=== PATIENT | male | born 1955 | race Caucasian/White ===

== ENCOUNTER 2019-10-29 08:08 | Day surgery (SDC) | payer OTHER ==
[2019-10-26 14:29] LABS: Protime INR 1.03
[2019-10-29] MEDS ORDERED: NA CHLORIDE 0.9% 500 ML ONE (08:12)
--- OUTSIDE RECORDS SUMMARY | 2019-10-29 08:51 | XMS REPORT | Continuity of Care Document ---
:1955 Author Organization [facility] t Address [address] [place] [address] Care Team Providers Name Role Phone 2, Lab Attending Clinician Unavailable Doctor Unassigned, Name Attending Clinician Unavailable Sandro Bingham MD Attending Clinician Vincenzo GOODSON Attending Clinician Problems This patient has no known problems. Allergies, Adverse Reactions, Alerts This patient has no known allergies or adverse reactions. Medications This patient has no known medications. Procedures This patient has no known procedures. Encounters Start End Encounter Admission Attending Care Care Encounter Source Date/Time Date/Time Type Type Clinicians Facility Department ID 2019-10-24 2019-10-24 Micro Photographer 2, [facility] [id number] 09:06:16 09:21:16 Visit Renetta [id number] [place] [id number] Professio [phone] [address] 2019-10-24 2019-10-24 Orders Doctor RENETTA [id number] 00:00:00 00:00:00 Only Unassigned, NIELS [id number] [place] [facility] [phone] [id number] 2019-10-19 2019-10-19 Telephone TOM Bingham [id number] 00:00:00 00:00:00 [facility] [id number] Sandro Jackson [id number] Professio [phone] nal [address] One 2019-09-27 2019-09-27 Office Vincenzo [facility] [id number] 08:30:31 08:50:31 Visit Rudolph Jackson [id number] Alanna [id number] Maureen [phone] formerly [facility] 085 Building Results This patient has no known results.
--- OUTSIDE RECORDS SUMMARY | 2019-10-29 08:51 | XMS REPORT | Summary of Care ---
:1955 Author Organization [facility] Address [address] [place] [address] Care Team Providers Name Role Phone Geoff Bingham MD Primary Care Provider Encounter Details Date Type Department Care Team Description 08/24/2019 Hospital Encounter [facility], Dedra [place] [facility] [address] [facility] [address] [place] [address] [place] [address] [place] [address] [phone] Allergies No Known Allergiesdocumented as of this encounter (statuses as of 08/25/2019) Medications Medication Sig Dispensed Refills Start Date End Date Status aspirin 81 mg chewable Take 81 mg by 0 Active tablet mouth daily. VITAMIN E ACETATE Take by mouth. 0 Active (VITAMIN E ORAL) FLAXSEED ORAL Take by mouth. 0 Active FOLIC Take by mouth. 0 Acti ve ACID/MULTIVIT-MIN/LUTEIN (CENTRUM SILVER ORAL) valsartan 160 mg Take 1 tablet 30 tablet 5 05/10/2018 Active tabletIndications: by mouth daily. Essential hypertension indomethacin 25 mg Take 1 capsule 30 capsule 5 08/25/2018 Active capsuleIndications: Acute by mouth 3 non intractable (three) times tension-type headache daily with meals. 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 Exposure to the flu ATORVASTATIN 10 mg TAKE ONE TABLET 30 tablet 2 04/06/2019 Active tabletIndications: BY MOUTH EVERY Hyperlipidemia, EVENING unspecified hyperlipidemia type albuterol 90 Inhale 2 Puffs 8.5 g 0 08/24/2019 A ctive mcg/actuation every 6 (six) inhalerIndications: SOB hours as needed (shortness of breath) for Wheezing or Shortness of Breath. documented as of this encounter (statuses as of 08/25/2019) Active Problems Problem Noted Date Essential hypertension 06/26/2015 Gout 06/26/2015 Male erectile disorder 06/26/2015 Hypercholesterolemia 06/26/2015 documented as of this encounter (statuses as of 08/25/2019) Social History Tobacco Use Types Packs/Day Years Used Date Never Smoker Smokeless Tobacco: Never Used Alcohol Use Drinks/Week oz/Week Comments Yes 21 Shots of liquor 21.0 Sex Assigned at Date Recorded Not on file Job Start Date Occupation Industry Not on file Not on file Not on file Travel History Travel Start Travel End No recent travel history available. COVID-19 Exposure Response Date Recorded In the last month, have you been in contact with No / Unsure 08/24/2019 8:59 AM CDT someone who was confirmed or suspected to have Coronavirus / COVID-19? documented as of this encounter Last Filed Vital Signs Not on filedocumented in this encounter Plan of Treatment Health Maintenance Due Date Last Done Comments HEPATITIS C (HCV) SCREEN 1955 DTaP,Tdap,and Td Vaccines (1 - Tdap) 1966 Zoster Recombinant Vaccine (SHINGRIX) 11/13/2003 (1 of 2) Medicare Wellness Visit 2018 PNEUMOCOCCAL VACCINES 65+ (1 of 2 - 2018 PCV13) INFLUENZA VACCINE (Season Ended) 2019 Depression Screening 12/08/2019 12/07/2018 COLONOSCOPY 06/21/2023 06/20/2013 (Previously completed) documented as of this encounter Procedures Procedure Name Priority Date/Time Associated Diagnosis Comme nts XR CHEST 2 VW COVID STAT 08/24/2019 9:40 AM SOB (shortness of Results for this CDT breath) procedure are i n the results section. documented in this encounter Results XR CHEST 2 VW COVID (08/24/2019 9:40 AM CDT) Specimen Narrative Performed At EXAM: XR CHEST 2 VW COVID PACS/VR/DOSE HISTORY: shortness of breath COMPARISON: None. FINDINGS: The heart and great vessels are normal and the lungs a re well expanded and clear. Procedure Note [facility], Radiant Results Inft User - 2019 9:45 AM CDT EXAM: XR CHEST 2 VW COVID HISTORY: shortness of breath COMPARISON: None. FINDINGS: The heart and great vessels are normal a nd the lungs are well expanded and clear. Performing Organization Address City/State[facility] Phone Number PACS/VR/DOSE documented in this encounter Visit Diagnoses Diagnosis SOB (shortness of breath) Shortness of breath documented in this encounter Insurance Payer Benefit Plan / Subscriber ID Effective Phone Address T ype Group Dates MEDICARE MEDICARE PART xxxxxxxxxxx 2018-Prese [phone] Medicare A & B nt [id number] [place] [id number] [facility] [id number] 2019-Prese I ndemnity [employer]НА [employer] INSURANCE nt documented as of this encounter
--- OUTSIDE RECORDS SUMMARY | 2019-10-29 08:51 | XMS REPORT | Summary of Care ---
:1955 Author Organization [facility] Address [address] [place] [address] Care Team Providers Name Role Phone Geoff Bingham MD Primary Care Provider Reason for Visit Reason Comments New Patient Cough Encounter Details Date Type Department Care Team Description 09/27/2019 Office Visit [facility] ADC Rudolph Loya DO Cough (Primary Dx) Pulmonary Clinic [address] [place] [phone] Allergies No Known Allergiesdocumented as of this encounter (statuses as of 09/27/2019) Medications Medication Sig Dispensed Refills Start Date [...] by mouth daily. Exposure to the flu albuterol 90 Inhale 2 Puffs 8.5 g 0 08/24/2019 A ctive mcg/actuation every 6 (six) inhalerIndications: SOB hours as needed (shortness of breath) for Wheezing or Shortness of Breath. ATORVASTATIN 10 mg TAKE ONE TABLET 30 tablet 1 08/27/2019 Active tabletIndications: BY MOUTH EVERY Hyperlipidemia, EVENING unspecified hyperlipidemia type documented as of this encounter (statuses as of 09/27/2019) Active Problems Problem Noted Date Essential hypertension 06/26/2015 Gout 06/26/2015 Male erectile disorder 06/26/2015 Hypercholesterolemia 06/26/2015 documented as of this encounter (statuses as of 09/27/2019) Social History Tobacco Use Types Packs/Day Years Used Date Never Smoker Smokeless Tobacco: Never Used Alcohol Use Drinks/Week oz/Week Comments Yes 21 Shots of liquor 21.0 Sex Assigned at Date Recorded Not on file Job Start Date Occupation Industry Not on file Not on file Not on file Travel History Travel Start Travel End No recent travel history available. documented as of this encounter Last Filed Vital Signs Vital Sign Reading Time Taken Comments Blood Pressure 125/76 09/27/2019 8:55 AM CDT Pulse 97 09/27/2019 8:55 AM CDT Temperature - - Respiratory Rate 19 09/27/2019 8:55 AM CDT Oxygen Saturation 99% 09/27/2019 8:55 AM CDT Inhaled Oxygen Concentration - - Weight 97.1 kg (214 lb) 09/27/2019 8:55 AM CDT Height 180.3 cm (5' 11") 09/27/2019 8:55 AM CDT Body Mass Index 29.85 09/27/2019 8:55 AM CDT documented in this encounter Patient Instructions Patient Rudolph Piña DO - 09/27/2019 8:40 AM CDT Patient Education Tips to Control Acid Reflux To control acid reflux, youll need to make some basic diet and lifestyle changes. The simple steps outlined below may be all youll need to ease discomfort. Watch what you eat Don't have fatty foods or spicy foods. Eat fewer acidic foods, such as citrus and tomato-based foods. These can increase symptoms. Limit drinking alcohol, caffeine, and fizzy beverages. All increase acid reflux. Try limiting chocolate, peppermint, and spearmint.These can make acid reflux worse in some people. Watch when you eat Don't lie down [id number] after eating. Don't snack before going to bed. Raise your head Raising your head and upper body by 4 to 6 incheshelps limit reflux when youre lying down. Put blocks under the head of your bed frame or a wedge under your mattress to raise it. Other changes Lose weight, if you need to Dont exercise near bedtime Don't wear tight-fitting clothes Limit aspirin and ibuprofen Stop smoking [employer] last reviewed this educational content on 08/05/201819995094-1631 [employer]. [address] [place] [address]. All rights reserved. This information is not intended as a substitute for professional medical care. Always follow your healthcare professional's instructions. documented in this encounter Progress Notes Rudolph Loya DO - 09/27/2019 8:40 AM CDT [facility] Chief Complaint: Cough History of Present Illness: Conrad Simons is a 63 year old male with cough for the past month and ahalf, not productive of phlegm except first thing in the morning. Mostly when laying down and when he wakes up in the morning. Worse with laying down on the right side. No runny nose, nasal congestion,sore throat, post nasal drip. Cough does wake up from sleep at times. Past Medical History: has a past medical history of Gout, Hyperlipidemia, and Hypertension. He alsohas no past medical history of Diabetes mellitus, Myocardial infarction, or Stroke. Past Surgical History: has no past surgical history on file. Family History: family history includes Cancer in his father; No Significant Medical Problems in hismother. Social History: reports that he has never smoked. He has never used smokeless tobacco. He reports that he drinks about 21.0 standard drinks of alcohol per week. He reports that he does not use drugs. Review of Systems: Review of Systems Constitutional: Negative. HENT: Negative. Eyes: Negative. Respiratory: Positive for cough. Cardiovascular: Negative. Gastrointestinal: Negative. Genitourinary: Negative. Musculoskeletal: Negative. Skin: Negative. Neurological: Negative. Psychiatric/Behavioral: Negative. Endocrine: Endocrine negative Objective: BP 125/76 (BP Location: Left arm, Patient Position: Sitting, BP CUFF SIZE: Adult Large) | Pulse 97| Resp 19 | Ht 5' 11" (1.803 m) | Wt 214 lb (97.1 kg) | SpO2 99% | BMI 29.85 kg/m Physical Exam Constitutional: He is oriented to person, place, and time. He appears well- developed and well-nourished. HENT: Head: Normocephalic and atraumatic. Eyes: Conjunctivae and EOM are normal. Neck: Normal range of motion. Neck supple. Cardiovascular: Normal rate and regular rhythm. Pulmonary/Chest: Effort normal and breath sounds normal. No respiratory distress. Abdominal: Soft. He exhibits no distension. Musculoskeletal: Normal range of motion. Neurological: He is alert and oriented to person, place, and time. Skin: Skin is warm and dry. Psychiatric: He has a normal mood and affect. His behavior is normal. Judgment and thought content normal. Labs/Studies: CXR no acute abnormalities noted, reviewed images and report Assessment: ICD-10-CM ICD-9-CM 1. Cough R05 786.2 May be related to allergies/dust May be related to reflux Plan: 1. Continue with current management including air purifier that seemed to have helped the cough 2. Reflux precautions 3. Follow up 8 weeks documented in this encounter Plan of Treatment Health Maintenance Due Date Last Done Comments HEPATITIS C (HCV) SCREEN 1955 DTaP,Tdap,and Td Vaccines (1 - Tdap) 1964 Zoster Recombinant Vaccine (SHINGRIX) 11/13/2003 (1 of 2) Medicare Wellness Visit 2018 PNEUMOCOCCAL VACCINES 65+ (1 of 2 - 2018 PCV13) INFLUENZA VACCINE (#1) 2019 Depression Screening 09/26/2020 09/27/2019 COLONOSCOPY 06/21/2023 06/20/2013 (Previously completed) documented as of this encounter Results Not on filedocumented in this encounter Visit Diagnoses Diagnosis Cough - Primary documented in this encounter Insurance Payer Benefit Plan / Subscriber ID Effective Phone Address T ype Group Dates MEDICARE MEDICARE PART xxxxxxxxxxx 2018-Prese [phone] Medicare A & B nt [id number] [place] [id number] [facility] [id number] 2019-Prese I ndemnity [employer] INSURANCE nt documented as of this encounter
--- OUTSIDE RECORDS SUMMARY | 2019-10-29 08:51 | XMS REPORT | Summary of Care ---
:1955 Author Organization [facility] Address [address] [place] [address] Care Team Providers Name Role Phone Geoff Bingham MD Primary Care Provider [phone] Reason for Visit Reason Comments Refill Request Encounter Details Date Type Department Care Team Description 08/27/2019 Refill [facility] Geoff Dumont MD Refill Request - [address] [place] [address] [place] [address] [phone] Allergies No Known Allergiesdocumented as of this encounter (statuses as of 08/27/2019) Medications Medication Sig Dispensed Refills Start End Date Status Date aspirin 81 mg chewable Take 81 mg by 0 Active tablet mouth daily. VITAMIN E ACETATE Take by 0 Ac tive (VITAMIN E ORAL) mouth. FLAXSEED ORAL Take by 0 Active mouth. FOLIC Take by 0 Active ACID/MULTIVIT-MIN/LUTEI mouth. N (CENTRUM SILVER ORAL) valsartan 160 mg Take 1 tablet 30 tablet 5 Active tabletIndications: by mouth 9 Essential hypertension daily. indomethacin 25 mg Take 1 30 capsule 5 Active capsuleIndications: capsule by 9 Acute non intractable mouth 3 tension-type headache (three) times daily with meals. ALLOPURINOL 300 mg TAKE ONE 90 tablet 3 A ctive tabletIndications: TABLET BY 9 Chronic gout involving MOUTH DAILY toe of right foot without tophus, unspecified cause LOSARTAN 100 mg TAKE ONE 90 tablet 3 Acti ve tabletIndications: TABLET BY 9 Essential hypertension MOUTH DAILY MUST BE SEEN FOR REFILLS HYDROCHLOROTHIAZIDE TAKE ONE 90 capsule 3 Active 12.5 mg CAPSULE BY 9 capsuleIndications: MOUTH DAILY Essential hypertension oseltamivir (TAMIFLU) Take 1 10 capsule 0 Active 75 mg capsule by 0 capsuleIndications: mouth daily. Exposure to the flu albuterol 90 Inhale 2 8.5 g 0 Active mcg/actuation Puffs every 6 0 inhalerIndications: SOB (six) hours (shortness of breath) as needed for Wheezing or Shortness of Breath. ATORVASTATIN 10 mg TAKE ONE 30 tablet 1 A ctive tabletIndications: TABLET BY 0 Hyperlipidemia, MOUTH EVERY unspecified EVENING hyperlipidemia type ATORVASTATIN 10 mg TAKE ONE 30 tablet 2 08/27/19 D iscontinued tabletIndications: TABLET BY 0 20 Hyperlipidemia, MOUTH EVERY unspecified EVENING hyperlipidemia type documented as of this encounter (statuses as of 08/27/2019) Active Problems Problem Noted Date Essential hypertension 06/26/2015 Gout 06/26/2015 Male erectile disorder 06/26/2015 Hypercholesterolemia 06/26/2015 documented as of this encounter (statuses as of 08/27/2019) Social History Tobacco Use Types Packs/Day Years [...] filedocumented in this encounter Visit Diagnoses Diagnosis Hyperlipidemia, unspecified hyperlipidem ia type documented in this encounter Insurance Payer Benefit Plan / Subscriber ID Effective Phone Address T ype Group Dates MEDICARE MEDICARE PART xxxxxxxxxxx 2018-Prese [phone] Medicare A & B nt [id number] [place] [id number] [facility] [id number] 2019-Prese I ndemnity [employer] С[employer]АНА LIFE INSURANCE nt documented as of this encounter
--- OUTSIDE RECORDS SUMMARY | 2019-10-29 08:51 | XMS REPORT | Summary of Care ---
:1955 Author Organization [facility] Address [address] [place] [address] Care Team Providers Name Role Phone Geoff Bingham MD Primary Care Provider [phone] Reason for Visit Reason Comments New Patient Cough Encounter Details Date Type Department Care Team Description 09/27/2019 Office Visit [facility] ADC Rudolph Loya DO Cough (Primary Dx) Pulmonary Clinic [address], [address] [place] [phone] Allergies No Known Allergiesdocumented as of this [...] Watch when you eat Don't lie down [id number] after eating. Don't snack before going to [...] clothes Limit aspirin and ibuprofen Stop smoking [employer] last reviewed this educational content on 08/05/201819997689-6217 [employer]. [address] [place] [address]. All rights reserved. This information is not intended as a substitute for professional medical care. Always follow your healthcare professional's instructions. documented in this encounter Progress Notes Rudolph Loya DO - 09/27/2019 8:40 AM CDT [facility] Chief Complaint: Cough [...] BOX Medicare A & B nt [id number] [place] [id number] [facility] [id number] 2019-Prese I ndemnity [employer] nt documented as of this encounter
--- OUTSIDE RECORDS SUMMARY | 2019-10-29 08:51 | XMS REPORT | Summary of Care ---
:1955 Author Organization [facility] - [facility] Address [address] [place] [address] Care Team Providers Name Role Phone Geoff Bingham MD Primary Care Provider [phone] Reason for Visit Reason Comments Shortness of Breath x 2-3 weeks Encounter Details Date Type Department Care Team Description 08/24/2019 Urgent Care [facility] Family Felipa Wilcox, DIESEL SCOOP OPERATOR [facility] [address] [place] [address] Sore throat (Primary Dx); Medicine - [place] [facility] Cough; [address] [place] [address] SOB (short ness of breath); Drive Exposure to Covid-19 [place] [address] Allergies No Known Allergiesdocumented as of this encounter (statuses as of 08/24/2019) Medications Medication Sig Dispensed Refills Start Date [...] as of this encounter (statuses as of 08/24/2019) Active Problems Problem Noted Date Essential hypertension 06/26/2015 Gout 06/26/2015 Male erectile disorder 06/26/2015 Hypercholesterolemia 06/26/2015 documented as of this encounter (statuses as of 08/24/2019) Social History Tobacco Use Types Packs/Day Years [...] Reading Time Taken Comments Blood Pressure 125/76 08/24/2019 8:59 AM CDT Pulse 89 08/24/2019 8:59 AM CDT Temperature 36.7 C (98 F) 08/24/2019 8:59 AM CDT Respiratory Rate 20 08/24/2019 8:59 AM CDT Oxygen Saturation 99% 08/24/2019 8:59 AM CDT Inhaled Oxygen Concentration - - Weight 95.3 kg (210 lb) 08/24/2019 8:59 AM CDT Height 180.3 cm (5' 11") 08/24/2019 8:59 AM CDT Body Mass Index 29.29 08/24/2019 8:59 AM CDT documented in this encounter Patient Instructions Patient InstructionsMiguel Ortiz FNP - 08/24/2019 9:00 AM CDT Patient Education Understanding Coronavirus Disease 2019 (COVID-19) Coronavirus disease 2019 (COVID-19) is a respiratory illness. It's caused by a new (novel) coronavirus called SARS-CoV-2. There are many types of coronavirus. Coronaviruses are a very common cause of bronchitis. They may sometimes cause lung infection (pneumonia). Symptoms can range from mild to severe respiratory illness. These viruses are also found in some animals. COVID-19 was first found in people in [facility], in late 2018.COVID-19 is a rapidly-emerging infectious disease. This means thatscientists are actively researching it.There are information updates regularly. Public health officials are working to find the source. How the virus spreads is not yet fully understood, but it seems to spread and infect people fairly easily. Some people who have been infected in an area may be unsure how or where they became infected. The virus may be spread through droplets of fluid that a person coughs or sneezes into the air. It may be spread if you touch a surface with virus on it, such as a handle or object, and then touch your eyes, nose, or mouth. For the latest information, visit the CDC website at www.cdc.gov/coronavirus/2019-ncov. Or call 401-BOB-VTZG (061-597-8815). What are the symptoms of COVID-19? Some people have no symptoms or mild symptoms. Symptoms may appear 2 to 14 days after contact with the virus. Symptoms can include: Fever Coughing Trouble breathing What are possible complications from COVID-19? In many cases, this virus can cause infection (pneumonia) in both lungs. In some cases, this can cause . Certain people are at higher risk for complications. This includes older adults and people with serious chronic health conditions such as heart or lung disease or diabetes. How is COVID-19 diagnosed? Your healthcare provider will ask about your symptoms. He or she will also ask about your recent travel and contact with sick people. If your healthcare provider thinks you may have COVID-19, he or shewill work closely with your local health department on testing. Follow all instructions from your healthcare provider. COVID-19 is diagnosed by: Nose and throat swab. A cotton-tipped swab is wiped inside your nose or throat. This is done to check for viruses in your nasal mucus. Sputum culture. A small sample of mucus coughed from your lungs (sputum) is collected if you havea cough. It's checked for the virus. How is COVID-19 treated? There is currently no medicine to treat the virus. Treatment is done to help your body while it fights the virus. This is known as supportive care. Supportive care may include: Getting rest. This helps your body fight the illness. Staying hydrated. Drink 6 to 8 glasses of liquids every day. Good choices are water, sport drinks, soft drinks without caffeine, juices, tea, and soup. Taking pain medicine. These may include acetaminophen and ibuprofen. They are used to help ease pain and reduce fever. Follow your healthcare provider's instructions. For severe illness, you may need to stay in the hospital. Care during severe illness may include: IV (intravenous) fluids. These are given through a vein to help keep your body hydrated. Oxygen. Supplemental oxygen or ventilation with a breathing machine (ventilator) may be given. This is done so you get enough oxygen in your body. Are you at risk for COVID-19? You are at risk for infection if youve been to a place where people have been sick with this virus or if there are people with COVID-19 in your area. You are at risk if you: Recently traveled to an area with a COVID-19 outbreak Had contact with a sick person who recently traveled to an area with a COVID- 19 outbreak Had contact with a person who was diagnosed with or who may have COVID-19 How can COVID-19 be prevented? There is no vaccine yet. The best prevention is to not have contact with the virus. The CDC advises that people should not travel to areas where there are COVID-19 outbreaks right now for any reason that is not urgent. For the most current CDC travel advisories, visit the CDC website at www.cdc.gov/cor onavirus/2018-ncov/travelers. To help prevent spreading the infection, wash your hands often, or use an alcohol-based hand weight reduction specialist. The CDC advises that you should not wear a facemask if you are not sick. Prepare and protect yourself from COVID-19: Wash your hands often with soap and clean, running water for at least 20 seconds. If you don't have access to soap and water, use an alcohol-based hand weight reduction specialist often. Make sure it has at least 60% alcohol. Don't touch your eyes, nose, or mouth unless you have clean hands. As much as possible, don't touch "high-touch" public surfaces such as doorknobs. Don't shake hands. Clean home and work surfaces often with disinfectant. Cough or sneeze into a tissue, then throw the tissue into the trash. If you don't have tissues, cough or sneeze into the bend of your elbow. Stay informed about COVID-19 in your area. Follow local instructions about being in public. Be aware of events in your community that may be postponed or canceled such as school and sporting events.You may be advised not to attend public gatherings. You will be advised to stay about 6 feet from others as much as possible. This is called "social distancing." The CDC advises wearing a cloth face mask in public. During a public health emergency, medical face masks may be reserved for healthcare workers. You may need to make a cloth face mask of your own. You can do this using a bandana, T- shirt, or other cloth. The CDC hasinstructions on how to make a mask. Check your home supplies. Consider keeping a 2-week supply of medicines, food, and other needed household items. Make a plan for childcare, work, and ways to stay in touch with others. Know who will help you ifyou get sick. Don't be around people who are sick. There is no evidence right now that animals spread SARS-CoV-2. But it's always a good idea to wash your hands after touching any animals. Don't touch animals that may be sick. Dont share eating or drinking utensils with sick people. Dont kiss someone who is sick. If you were in an area with COVID-19 in the last 14 days: Call your healthcare provider and follow all instructions. Your activities and where you go may be restricted for up to 2 weeks. You may be directed to stay home, or "self-quarantine." Take your temperature every morning and evening for at least 14 days. This is to check for fever.Keep a record of the readings. Watch for symptoms of the virus. Call your provider if you have symptoms. Call your provider first before going to any clinic or hospital. Stay home if you are sick for any reason. If you are sick with COVID-19 symptoms: Stay home. Call your healthcare provider and tell them you have symptoms of COVID-19. Do this before going to any hospital or clinic. Follow your provider's instructions. You may be advised to isolate yourself at home. This is called self-isolation . Dont panic. Keep in mind that other illnesses can cause similar symptoms. Stay away from work, school, and public places. Limit physical contact with family members. Limitvisitors. Don't kiss anyone or share eating or drinking utensils. Clean surfaces you touch with disinfectant. This is to help prevent the virus from spreading. Cough or sneeze into a tissue, then throw away the tissue in the trash. If you don't have tissues, cough or sneeze into the bend of your elbow. Wear a facemask only if you have symptoms If you need to go in to a hospital or clinic, expect that the healthcare staff will wear protective equipment such as masks, gowns, gloves, and eye protection. You may be put in a separate room. This is to prevent the possible virus from spreading. Tell the healthcare staff about recent travel. This includes local travel on public transport. Staff may need to find other people you have been in contact with. Follow all instructions the healthcare staff give you. If you have been diagnosed with COVID-19 Stay home. Dont leave your home unless you need to get medical care. Don't go to work, school,or public areas. Don't use public transportation or taxis. Follow all instructions from your healthcare provider. Call your healthcare providers office before going. They can prepare and give you instructions. This will help prevent the virus from spreading. If you need to go to a hospital or clinic, expect that the healthcare staff will wear protective equipment such as masks, gowns, gloves, and eye protection. You may be put in a separate room. This is to prevent the possible virus from spreading. Wear a face mask. This is to protect other people from your germs. If you are not able to wear a mask, your caregivers should. Stay away from other people in your home. Limit contact with pets and animals. Although there are no reports of pets getting sick with COVID-19, consider limiting contact with pets until more is known. Dont share household items or food. Cover your face with a tissue when you cough or sneeze. Throw the tissue away. Then wash your hands. Wash your hands often. If you are caring for a sick person: Follow all instructions from healthcare staff. Wash your hands often. Wear protective clothing as advised. Make sure the sick person wears a mask. If they can't wear a mask, don't stay in the same room with the person. If you must be in the same room, wear a facemask. Keep track of the sick persons symptoms. Clean surfaces, fabrics, and laundry thoroughly. Keep other people and pets away from the sick person. When to call your healthcare provider Call your healthcare provider right away: If youve recently traveled or have been in an area with COVID-19 and have symptoms If you have been diagnosed with COVID-19 and your symptoms are worse Date last modified: 06/11/2019 [employer] last reviewed this educational content on 03/07/201919995454-5500 [employer]. [address] [place] [address]. All rights reserved. This information is not intended as a substitute for professional medical care. Always follow your healthcare professional's instructions. documented in this encounter Progress Notes Anju Madrid MA - 08/24/2019 9:00 AM CDT Conrad Simons is a 63 year old male Chief Complaint Patient presents with Shortness of Breath x 2-3 weeks Vitals: 08/24/19 0859 BP: 125/76 Pulse: 89 Resp: 20 Temp: 36.7 C (98 F) SpO2: 99% Weight: 210 lb (95.3 kg) Height: 5' 11" (1.803 m) [facility] [address] [facility], [place] - [address] All Vitals taken, allergies and all medications reviewed, fall risk assessed. Pain level 0. Anju Madrid MA Patient educated on plan of care for visit, swabbing technique, risks and benefits of test and length of time to receive results. Verbal consent obtained to perform test. CDC Fact Sheet for Patients nCoV Diagnostic Panel dated 05/20/2019 provided. covid test run Miguel Sahu FNP - 08/24/2019 9:00 AM CDT COVID-19 Screening Clinic: [facility] Patient Name: Conrad Simons Date of : 1955 63 year old Primary Care Physician: Geoff Bingham During this visit: Full PPE was used, mask, face shield, gown, and gloves Chief Complaint Chief Complaint Patient presents with Shortness of Breath x 2-3 weeks HPI 63 yr old male patient here for c/o 2-3 week history of intermittent shortness of breath. Patient states sob isnt excessive and doesn't occur every day. Patient denies any other symptoms at this time. Patient denies any chronic lung issue or smoking history. Patient denies any recent travel or contactwoth known positive covid patient Past Medical History / Immunizations Past Medical History: Diagnosis Date Gout Hyperlipidemia Hypertension Past Surgical History No past surgical history on file. Allergies No Known Allergies Review of Systems Review of Systems Constitutional: Negative for chills, fatigue and fever. HENT: Negative for congestion, rhinorrhea, sinus pressure, sneezing and sore throat. Respiratory: Positive for shortness of breath. Negative for cough and chest tightness. Gastrointestinal: Negative for nausea and vomiting. Musculoskeletal: Negative for myalgias. Skin: Negative for rash. Neurological: Negative for dizziness, syncope, weakness, light-headedness and headaches. All other systems reviewed and are negative. Sick Contacts: contacts with similar symptoms - no Physical Exam BP 125/76 | Pulse 89 | Temp 36.7 C (98 F) | Resp 20 | Ht 5' 11" (1.803 m) | Wt 210 lb (95.3kg) | SpO2 99% | BMI 29.29 kg/m Physical Exam Constitutional: He is oriented to person, place, and time. Vital signs are normal. He appears well-developed and well-nourished. He is cooperative. Non- toxic appearance. He does not have a sickly appearance. He does not appear ill. No distress. HENT: Right Ear: Hearing, tympanic membrane, external ear and ear canal normal. Left Ear: Hearing, tympanic membrane, external ear and ear canal normal. Nose: Nose normal. Right sinus exhibits no maxillary sinus tenderness and no frontal sinus tenderness. Left sinus exhibits no maxillary sinus tenderness and no frontal sinus tenderness. Mouth/Throat: Uvula is midline, oropharynx is clear and moist and mucous membranes are normal. No oropharyngeal exudate. Eyes: Pupils are equal, round, and reactive to light. Conjunctivae and EOM are normal. Neck: Normal range of motion. Neck supple. Cardiovascular: Normal rate. Pulmonary/Chest: Effort normal and breath sounds normal. No accessory muscle usage. No apnea, no tachypnea and no bradypnea. No respiratory distress. He has no decreased breath sounds. He has no wheezes. He has no rhonchi. He has no rales. He exhibits no tenderness. Musculoskeletal: Normal range of motion. Neurological: He is alert and oriented to person, place, and time. Skin: Skin is warm and dry. Capillary refill takes less than 2 seconds. No rash noted. He is not diaphoretic. Psychiatric: He has a normal mood and affect. His behavior is normal. Judgment and thought content normal. Nursing note and vitals reviewed. No final results containing an impression from the past 2 days were found. Labs No results found for this or any previous visit (from the past 24 hour(s)). No results found. Orders and Treatments Orders Placed This Encounter Procedures XR CHEST 2 VW COVID-19 (PCR MOLECULAR TESTING) Outpatient Encounter Medications as of 08/24/2019 Medication Sig albuterol 90 mcg/actuation inhaler Inhale 2 Puffs every 6 (six) hours as needed for Wheezing or Shortness of Breath. ATORVASTATIN 10 mg tablet TAKE ONE TABLET BY MOUTH EVERY EVENING oseltamivir (TAMIFLU) 75 mg capsule Take 1 capsule by mouth daily. HYDROCHLOROTHIAZIDE 12.5 mg capsule TAKE ONE CAPSULE BY MOUTH DAILY LOSARTAN 100 mg tablet TAKE ONE TABLET BY MOUTH DAILY MUST BE SEEN FOR REFILLS ALLOPURINOL 300 mg tablet TAKE ONE TABLET BY MOUTH DAILY indomethacin 25 mg capsule Take 1 capsule by mouth 3 (three) times daily with meals. valsartan 160 mg tablet Take 1 tablet by mouth daily. aspirin 81 mg chewable tablet Take 81 mg by mouth daily. FLAXSEED ORAL Take by mouth. FOLIC ACID/MULTIVIT-MIN/LUTEIN (CENTRUM SILVER ORAL) Take by mouth. VITAMIN E ACETATE (VITAMIN E ORAL) Take by mouth. No results found for this visit on 08/24/19. Diagnosis Patient well appearing, NAD noted on exam Patient speaking in complete sentences on exam. Physical exam otherwise unremarkable Vital signs TREVON Martines was seen today for shortness of breath. Diagnoses and all orders for this visit: Sore throat - COVID-19 (PCR MOLECULAR TESTING) Cough - COVID-19 (PCR MOLECULAR TESTING) SOB (shortness of breath) - COVID-19 (PCR MOLECULAR TESTING) - XR CHEST 2 VW; Future - albuterol 90 mcg/actuation inhaler; Inhale 2 Puffs every 6 (six) hours as needed for Wheezing or Shortness of Breath. Exposure to Covid-19 Virus Disposition & Follow Up - Discussed likely viral diagnosis and treatment plan with pt. - pt advised on frequent effective handwashing - pt advised to increase fluid intake - advised to have the pt take OTC to treat symptoms. - Pt advised to administer Tylenol as per label recommendation as needed for pain or fever - AVS and Written/handout materials appropriate to problem and teaching provided. - advised to go to the nearest Emergency Department sooner for any new, worsening, persistent, or concerning symptoms - Patient verbalized understanding of all instructions EDUCATION: Handouts given: Patient educated on plan of care for visit, swabbing technique,risks and benefits of test and lengthof time to receive results. Verbal consent obtained to perform test. CDC Fact Sheet for patients nCoV Diagnostic Panel dated 05/20/2019 provided. "What to do if you are sick with COVID-19" CDC information guide reviewed with the patient and handout given to patient Education given to self quarantine until results are back. Will notify patient with results. Patient states understanding and all questions answered. Plan of care, goals and medications discussed with patient. Patient voices understanding. Barriers to care: none Ability to manage care: good This visit did not involve counseling and coordination that comprised more than 50% of the visit time. DELMIS Tobias 08/24/2019 8:55 AM documented in this encounter Plan of Treatment Name Type Priority Associated Diagnoses Date/Ti me XR CHEST 2 VW IMAGING STAT SOB (shortness of breath) 0 08/24/2019 9:28 AM CDT Name Type Priority Associated Diagnoses Order S chedule COVID-19 (PCR MOLECULAR LAB Routine Sore thr oat Ordered: 08/24/2019 TESTING) Cough SOB (shortness of breath) XR CHEST 2 VW IMAGING STAT SOB (shortness of Expected: 08/24/2019, breath) Expires: 2020 Health Maintenance Due Date Last Done Comments [...] filedocumented in this encounter Visit Diagnoses Diagnosis Sore throat - Primary Acute pharyngitis Cough SOB (shortness of breath) Shortness of breath Exposure to Covid-19 Virus documented in this encounter Insurance Payer Benefit Plan / Subscriber ID Effective Phone Address T ype Group Dates MEDICARE MEDICARE PART xxxxxxxxxxx 2018-Prese [phone] A & B nt [id number] [place] [id number] [facility] [id number] 2019-Prese I ndemnity [employer] nt documented as of this encounter
--- OUTSIDE RECORDS SUMMARY | 2019-10-29 08:52 | XMS REPORT | Summary of Care ---
:1955 Author Organization [facility] Address [address] [place] [address] Care Team Providers Name Role Phone Geoff Bingham MD Primary Care Provider [phone] Reason for Visit Reason Comments Orders Encounter Details Date Type Department Care Team Description 10/19/2019 Telephone [facility] Family Medicine Geoff Dumont MD Orders - [address] [place] [address] [place] [address] [phone] Allergies No Known Allergiesdocumented as of this encounter (statuses as of 10/22/2019) Medications Medication Sig Dispensed Refills Start Date [...] as of this encounter (statuses as of 10/22/2019) Active Problems Problem Noted Date Essential hypertension 06/26/2015 Gout 06/26/2015 Male erectile disorder 06/26/2015 Hypercholesterolemia 06/26/2015 documented as of this encounter (statuses as of 10/22/2019) Social History Tobacco Use Types Packs/Day Years Used Date Never Smoker Smokeless Tobacco: Never Used Alcohol Use Drinks/Week oz/Week Comments Yes 21 Shots of liquor 21.0 Sex Assigned at Date Recorded Not on file documented as of this encounter Last Filed Vital Signs Not on filedocumented in this encounter Miscellaneous Notes Telephone Encounter - Aleisha Mccauley - 10/19/2019 12:54 PM CDTWOP is calling and is requesting to know if can order lab work for the patient, patient saw a adaptive physical education teacher and requested for the patients PCP to order lab work due to an abnormal EKG , patient is hoping to get Blood work done before his stress test on 10/24, please call patient back in regards to this encounter. documented in this encounter Plan of Treatment Date Type Specialty Care Team Description 11/29/2019 Office Visit Pulmonary Disease Rudolph Loya DO [address] [place] [address] Name Type Priority Associated Diagnoses Order S chedule CBC WITH DIFF LAB Routine Essential hypertension Expe cted: 10/23/2019 (Approximate), Expires: 11/05/2019 COMP. METABOLIC PANEL LAB Routine Essential hypertens ion Expected: 10/23/2019 (95651) (Approximate), Expires: 11/05/2019 LIPID PANEL ([id number])(TOTAL LAB Routine Hypercholestero lemia Expected: 10/23/2019 CHOLESTEROL, (Approximate), Expires: TRIGLYCERIDES, HDL) 11/05/19 20 Health Maintenance Due Date Last Done Comments HEPATITIS C (HCV) SCREEN 1955 DTaP,Tdap,and Td Vaccines (1 - Tdap) 1972 COLON CANCER SCREENING ANNUAL 11/13/2003 FIT/FOBT COLON CANCER SCREENING FIT DNA EVERY 11/13/2003 3 YEARS COLON CANCER SCREENING SIGMOIDOSCOPY 11/13/2003 EVERY 5 YEARS Zoster Recombinant Vaccine (SHINGRIX) 11/13/2003 (1 of 2) Medicare Wellness Visit 2018 PNEUMOCOCCAL VACCINES 65+ (1 of 1 - 2018 PPSV23) INFLUENZA VACCINE (#1) 2019 Depression Screening 09/26/2020 09/27/2019 COLONOSCOPY 06/21/2023 06/20/2013 (Previously completed) Colorectal Cancer Screening 06/21/2023 documented as of this encounter Results Not on filedocumented in this encounter Visit Diagnoses Diagnosis Essential hypertension - Primary Unspecified essential hypertension Hypercholesterolemia Pure hypercholesterolemia documented in this encounter Insurance Payer Benefit Plan / Subscriber ID Effective Phone Address T ype Group Dates MEDICARE MEDICARE PART [id number] 2018-Prese [phone] A & B nt [id number] [place] [phone] [facility] [id number] 2019-Prese I ndemnity [employer] nt documented as of this encounter
--- OUTSIDE RECORDS SUMMARY | 2019-10-29 08:53 | XMS REPORT | Summary of Care ---
:1955 Author Organization [facility] - Health Address [address] [place] [address] Care Team Providers Name Role Phone Geoff Bingham MD Primary Care Provider [phone] Encounter Details Date Type Department Care Team Description 10/24/2019 Orders Only [facility] Doctor Unassigned, No [address] [facility] Name [place] [id number] [address] [place] [id number] Allergies No Known Allergiesdocumented as of this encounter (statuses as of 10/25/2019) Medications Medication Sig Dispensed Refills Start Date [...] as of this encounter (statuses as of 10/25/2019) Active Problems Problem Noted Date Essential hypertension 06/26/2015 Gout 06/26/2015 Male erectile disorder 06/26/2015 Hypercholesterolemia 06/26/2015 documented as of this encounter (statuses as of 10/25/2019) Social History Tobacco Use Types Packs/Day Years Used Date Never Smoker Smokeless Tobacco: Never Used Alcohol Use Drinks/Week oz/Week Comments Yes 21 Shots of liquor 21.0 Sex Assigned at Date Recorded Not on file COVID-19 Exposure Response Date Recorded In the last month, have you been in contact with No / Unsure 10/24/2019 9:05 AM CDT someone who was confirmed or suspected to have Coronavirus / COVID-19? documented as of this encounter Last Filed Vital Signs Not on filedocumented in this encounter Plan of Treatment Date Type Specialty Care Team Description 11/29/2019 Office Visit Pulmonary Disease Rudolph Loya DO [address] [place] [address] Health Maintenance Due Date Last Done Comments [...] Screening 06/21/2023 documented as of this encounter Procedures Procedure Name Priority Date/Time Associated Diagnosis Comme nts PHYSICIAN ORDERS Routine 10/24/2019 12:01 AM CDT documented in this encounter Results Not on filedocumented in this encounter Insurance Payer Benefit Plan / Subscriber ID Effective Phone Address T ype Group Dates MEDICARE MEDICARE PART [id number] 2018-Prese [phone] A & B nt [phone] [place] [id number] [facility] [id number] 2019-Prese I ndemnity [employer] nt documented as of this encounter
--- OUTSIDE RECORDS SUMMARY | 2019-10-29 08:53 | XMS REPORT | Summary of Care ---
:1955 Author Organization [facility] Address [address] [place] [address] Care Team Providers Name Role Phone Geoff Bingham MD Primary Care Provider [phone] Reason for Visit Reason Comments LAB Encounter Details Date Type Department Care Team Description 10/24/2019 Broadcast Journalist Visit [facility] Ezequiel Ellison MD [address] [facility] [address] [place] [address] Essential hypertension, malignant (Prima ry Dx); Professional 2, Adc Lab Anemia, unspecified type; Office Building Mixed hyperl ipidemia; Phlebotomy Lab Heart failure, unspecified H F chronicity, unspecified heart failure type; Professional Essential hyper tension; Office Building Hypercholesterolemia [address] [facility] , [address] [place] [address] Allergies No Known Allergiesdocumented as of this encounter (statuses as of 10/24/2019) Medications Medication Sig Dispensed Refills Start Date [...] as of this encounter (statuses as of 10/24/2019) Active Problems Problem Noted Date Essential hypertension 06/26/2015 Gout 06/26/2015 Male erectile disorder 06/26/2015 Hypercholesterolemia 06/26/2015 documented as of this encounter (statuses as of 10/24/2019) Social History Tobacco Use Types Packs/Day Years [...] Signs Not on filedocumented in this encounter Nursing Notes Virginia Schumacher - 10/24/2019 11:15 AM CDT Venipuncture collection performed by clean technique on the right anticubitus. Total of 1 attempts were made. Slight pressure and a bandage/dressing were applied to the site(s). The patient experiencedno complications. The following specimens were processed according to instructions and sent to [facility] laboratories per lab order on 10/24/19: LT BLUE SST 1 RED LAV 1 PPT DK GREEN (LiHep) DK GREEN (SodH) FLORES DK BLUE (K2) DK BLUE (S) ACD Blood Culture NIPT/NTD documented in this encounter Plan of Treatment Date Type Specialty Care Team Description 11/29/2019 Office Visit Pulmonary Disease Jennifer Loyatimothyrj, [address] [place] [address] Name Type Priority Associated Diagnoses Order S chedule N-TERMINAL PRO-BNP LAB Routine Essential hypertension , Expected: 10/24/2019, malignant Expires: 10/23/2020 Anemia, unspecif ied type Mixed hyperlipid emia Heart failure, unspecified HF chronicity, unspecified heart failure type Health Maintenance Due Date Last Done Comments [...] in this encounter Visit Diagnoses Diagnosis Essential hypertension, malignant - Prim carla Anemia, unspecified type Mixed hyperlipidemia Heart failure, unspecified HF chronicity , unspecified heart failure type Essential hypertension Unspecified essential hypertension Hypercholesterolemia Pure hypercholesterolemia documented in this encounter Insurance Payer Benefit Plan / Subscriber ID Effective Phone Address T ype Group Dates MEDICARE MEDICARE PART [id number] 2018-Evonne [phone] Medicare A & B nt [id number] [place] [phone] [facility] [id number] 2019-Prese I ndemnity [employer] nt documented as of this encounter
[2019-10-29] MEDS ORDERED: HEPARIN 5000 UNIT/ML 1 ML VIAL ONE (10:45)
[2019-10-29] MEDS ORDERED: MIDAZOLAM HCL 2 MG/2 ML INJ ONE ×3 (10:45→11:17)
[2019-10-29] MEDS ORDERED: HEPARIN 10,000 UNIT/10 ML VIAL IV ONE (10:45)
[2019-10-29] MEDS ORDERED: HEPA 1000U/500MLS 2,000 UNIT/1,000 ML BAG IV ONE (10:45)
[2019-10-29] MEDS ORDERED: FENTANYL CITR 100 MCG/2 ML ONE ×2 (10:45→11:17)
[2019-10-29] MEDS ORDERED: ATROPINE SULF 1 MG/10 ML SYR IV ONE (10:46)
[2019-10-29] MEDS ORDERED: NICARDIPINE HCL 25 MG/10 ML IV ONE (10:46)
[2019-10-29] MEDS ORDERED: NITROGLYCERIN 100 MCG/ML SYR (for cath lab use only) IV ONE (10:46)
[2019-10-29 13:57] VITALS: TEMP 97.7
[2019-10-29 15:26] VITALS: BP 103/69; O2SAT 100
--- NOTE | 2019-10-29 21:36 | OP ---
Date of Procedure: 10/29/2019 Surgeon: DRE CASTILLO Procedures Performed: 1.Selective coronary angiogram. 2.Left heart catheterization. Indication: New onset systolic congestive heart failure with dyspnea on exertion. Access: Right radial artery 6-Lebanese, closed with TR band. Total Sedation Time: 25 minutes. Description Of Procedure: The patient was brought into cardiac catheterization laboratory, prepped a nd draped in usual sterile fashion. Right radial artery was accessed using pediatric micropuncture k it and then we advanced the 6-Lebanese slender sheath over the wire into the radial artery. Then, we t ook a 5-Lebanese [place] catheter into the aortic root over the J-wire, engaged the left main coronary ar kun and then right coronary artery, took standard views and then we took the catheter over the wire across the aortic valve into the LV, recorded LVEDP and then upon pullback, there was no difference i n pressure. I removed all wires and catheters, and the sheath was removed and applied TR band with g ood hemostasis. Findings: 1.Left main is very short, and large and normal. 2.LAD has a questionable ostial 40% stenosis. Otherwise, the LAD is totally normal. 3.Left circumflex is codominant vessel, large and normal. 4.RCA is codominant vessel and it is normal. 5.Elevated LVEDP of 23 mmHg. Impression: 1.Likely, this is nonischemic cardiomyopathy. Obtain echocardiogram to evaluate the patient in the office post echo. 2.We will need to do intravascular ultrasound of the ostial LAD to further identify the need for PCI. We will discuss this with the patient at the office visit next we ek. /ALEXANDRA Voice ID: [id number] Report ID: [id number]
== END 2019-10-29 14:34 | disposition home health service (06) ==
LOC: CCL 08:08
PROVIDERS: ATTEND Internal Medicine
DX: I11.0 Hypertensive heart disease with heart failure (principal); I50.20 Unspecified systolic (congestive) heart failure; R06.09 Other forms of dyspnea; I44.7 Left bundle-branch block, unspecified; E78.5 Hyperlipidemia, unspecified; Z79.899 Other long term (current) drug therapy
CPT/HCPCS: 36415; 85610; 85730; 93458; C1893; J1644 ×2; J2250 ×2; J3010; J7040